=== PATIENT | female | born 1995 | race Caucasian/White ===

== ENCOUNTER 2024-10-31 14:52 | Inpatient (IN) | payer MEDICAID ==
[2024-10-31 16:20] LABS: BASOPHILS ABSOLUTE AUTO 0.0 K/mm3 (0.0-0.2); BASOPHILS PERCENT AUTO 0.4 % (0.0-1.0); EOSINOPHILS ABSOLUTE AUTO 0.1 K/mm3 (0.0-0.4); EOSINOPHILS PERCENT AUTO 0.8 % (0.0-6.0); IMMATURE GRAN ABSOLUTE AUTO 0.04 K/mm3 (0.00-0.05); IMMATURE GRAN PERCENT AUTO 0.4 % (0.0-0.4); LYMPHOCYTES ABSOLUTE AUTO 2.1 K/mm3 (1.0-4.8); LYMPHOCYTES PERCENT AUTO 18.9 % (24.0-44.0); MEAN PLATELET VOLUME 10.9 fl (9.4-12.3); MONOCYTES ABSOLUTE AUTO 0.6 K/mm3 (0.0-0.8); MONOCYTES PERCENT AUTO 5.2 % (0.0-8.0); NEUTROPHILS ABSOLUTE AUTO 8.3 K/mm3 (1.8-7.7); NEUTROPHILS PERCENT AUTO 74.3 % (41.0-71.0); NRBC ABSOLUTE 0.03 (0.00-0.02); NRBC PERCENT 0.3 % (0.0-0.2); PLATELET COUNT,PLT 285 K/mm3 (150-400); RED BLOOD CELL COUNT 3.79 M/mm3 (4.10-5.30); WHITE BLOOD CELL COUNT,WBC 11.18 K/mm3 (3.9-11.3)
[2024-10-31 16:34] LABS: CREATININE,URINE RAND 130.1 mg/dL (30.0-125.0); PROTEIN CREATININE RATIO,URINE 385.1 mg/g (0-149); PROTEIN,URINE RANDOM 50.1 mg/dL (0.0-11.8)
[2024-10-31 16:35] LABS: ALANINE AMINOTRANSFERASE,ALT 14.0 U/L (14-59); ASPARTATE AMNIOTRANSFERASE,AST 19.0 U/L (15-37); BLOOD UREA NITROGEN,BUN 10.0 mg/dL (7-18); CREATININE 0.4 mg/dL (0.55-1.02); EST CRCL DRUG DOSING (CG) 168.57 mL/min; ESTIMATED GFR 136.0 mL/min (>60); LACTATE DEHYDROGENASE,LDH 146.0 U/L (81-234)
[2024-10-31] MEDS ORDERED: Ondansetron 4 MG/2 ML SDV IVPUSH PRN (17:05)
[2024-10-31] MEDS ORDERED: Nalbuphine 10 MG/1 ML Vial IVPUSH PRN (17:05)
[2024-10-31] MEDS ORDERED: Sodium Chloride 0.9% 10 ML Syringe FLUSH PRN ×2 (17:05→23:57)
[2024-10-31] MEDS ORDERED: Oxytocin/0.9 % Sodium Chloride 30 UNIT/500 ML BAG IV SCH (17:15)
[2024-10-31] MEDS: Oxytocin/0.9 % Sodium Chloride 30 UNIT/500 ML BAG IV SCH (17:56)
[2024-10-31] MEDS: Lactated Ringers 1,000 ML IV SCH (17:56)
[2024-10-31 19:29] LABS: C. TRACHOMATIS BY PCR DETECTED; N. GONORRHOEAE BY PCR NOT DETECTED
[2024-10-31] MEDS ORDERED: ePHEDrine 50 MG/ML SDV IVPUSH PRN (20:33)
[2024-10-31] MEDS ORDERED: diphenhydrAMINE 50 MG/ML SDV IVPUSH PRN (20:33)
[2024-10-31] MEDS: Bupivacaine/fentaNYL/NS 100 ML Bag EPIDUR PRN (22:49)
[2024-10-31] MEDS ORDERED: Lactated Ringers 1,000 ML IV SCH (23:45)
[2024-11-01] MEDS ORDERED: Morphine PF 10 MG/10 ML SDV ONE
[2024-11-01] MEDS ORDERED: Ropivacaine 0.5% 5 MG/ML 30 ML SDV ONE
[2024-11-01] MEDS ORDERED: fentaNYL 100 MCG/2 ML SDV IVPUSH PRN (00:02)
[2024-11-01] MEDS ORDERED: diphenhydrAMINE 50 MG/ML SDV IVPUSH PRN (00:02)
[2024-11-01] MEDS ORDERED: Sodium Chloride 0.9% 10 ML Syringe FLUSH PRN (00:02)
[2024-11-01] MEDS ORDERED: Ondansetron 4 MG/2 ML SDV IVPUSH PRN (00:02)
[2024-11-01] MEDS ORDERED: ePHEDrine 50 MG/ML SDV ONE (00:04)
[2024-11-01] MEDS: Citric Acid/Sodium Citrate Solution 30 ML Cup PO ONE (00:06)
[2024-11-01] MEDS ORDERED: Lactated Ringers 1,000 ML IV SCH (00:15)
[2024-11-01] MEDS ORDERED: Phenylephrine 1% 10 MG/ML SDV ONE (00:46)
[2024-11-01] MEDS ORDERED: Lactated Ringers 1,000 ML ONE (00:54)
[2024-11-01] MEDS ORDERED: ePHEDrine 50 MG/ML SDV IVPUSH PRN (01:53)
[2024-11-01] MEDS ORDERED: Naloxone 0.4 MG/ML SDV IVPUSH PRN (01:53)
[2024-11-01] MEDS ORDERED: Sodium Chloride 0.9% 10 ML Syringe FLUSH SCH (09:00)
[2024-11-01] MEDS: diphenhydrAMINE 50 MG/ML SDV IVPUSH PRN (17:58)
[2024-11-02 06:13] LABS: MEAN PLATELET VOLUME 10.8 fl (9.4-12.3); NRBC ABSOLUTE 0.03 (0.00-0.02); NRBC PERCENT 0.3 % (0.0-0.2); PLATELET COUNT,PLT 262 K/mm3 (150-400); RED BLOOD CELL COUNT 3.41 M/mm3 (4.10-5.30); WHITE BLOOD CELL COUNT,WBC 10.18 K/mm3 (3.9-11.3)
[2024-11-02] MEDS: Sodium Chloride 0.9% 10 ML Syringe FLUSH SCH (07:26)
[2024-11-02] MEDS: Ferrous Sulfate 324 MG Tab.EC PO SCH (07:32)
== END 2024-11-04 11:30 | disposition home or self-care (01) | DRG 787 ==
LOC: JD.OBCHECK 14:52 → JD.OB 14:56 → JD.OBCHECK 17:38 → OBSVTOIN 11-01 00:47 → JD.OB 11-01 00:48
PROVIDERS: ADMIT Obstetrics & Gynecology; ATTEND Obstetrics & Gynecology
PROC: 10907ZC Drainage of Amniotic Fluid, Therapeutic from Products of Conception, Via Natural or Artificial Opening (ICD-10-PCS; principal; 2024-11-01 00:30)
PROC: 3E0R3BZ Introduction of Anesthetic Agent into Spinal Canal, Percutaneous Approach (ICD-10-PCS; principal; 2024-11-01 00:30)
PROC: 10D00Z1 Extraction of Products of Conception, Low, Open Approach (ICD-10-PCS; principal; 2024-11-01 00:30)
PROC: 3E033VJ Introduction of Other Hormone into Peripheral Vein, Percutaneous Approach (ICD-10-PCS; principal; 2024-11-01 00:30)
DX: O14.04 Mild to moderate pre-eclampsia, complicating childbirth (principal); O98.82 Other maternal infectious and parasitic diseases complicating childbirth; O32.1XX0 Maternal care for breech presentation, not applicable or unspecified; O99.02 Anemia complicating childbirth; O23.593 Infection of other part of genital tract in pregnancy, third trimester; A59.01 Trichomonal vulvovaginitis; A74.9 Chlamydial infection, unspecified; Z37.0 Single live birth; Z87.891 Personal history of nicotine dependence; Z98.890 Other specified postprocedural states; Z3A.38 38 weeks gestation of pregnancy
CPT/HCPCS: 01967; 36415; 51702; 59025; 82565; 82570; 83615; 84156; 84450; 84460; 84520; 84550; 85025; 85027; 86850; 86900; 86901; 87491; 87591; A9270-GY; G0433; J0456; J0690; J1200; J2274; J2371; J2765; J2795; J3490; J7050; J7120; J7121; J7999